=== PATIENT | male | born 1980 | race Caucasian/White ===

== ENCOUNTER 2021-12-19 13:13 | Outpatient (CLI) | payer OTHER ==
[2021-12-20 00:01] LABS: SARS-CoV-2 PCR by NAA Not Detected (NotDetected)
== END 2021-12-19 13:14 | disposition home or self-care (01) ==
LOC: CSHLAB 13:13
PROVIDERS: ATTEND Chiropractor
DX: Z20.822 Contact with and (suspected) exposure to COVID-19 (principal)
CPT/HCPCS: U0003; U0005

== ENCOUNTER 2021-12-22 12:21 | Outpatient (CLI) | payer OTHER | END 2021-12-22 12:22 | disposition home or self-care (01) | LOC: CSHCP 12:21 | PROVIDERS: ATTEND Chiropractor | DX: R06.02 Shortness of breath (principal) | CPT/HCPCS: 71046; 94060; 94760 ==